=== PATIENT | male | born 1930 | race Caucasian/White ===

== ENCOUNTER 2016-10-03 12:47 | Inpatient (IN) ==
[2016-10-03] MEDS ORDERED: ASPIRIN PO STA (13:09)
[2016-10-03 13:40] LABS: MANUAL DIFF NEEDED? NO
[2016-10-03 13:48] LABS: BASO% 0.2 % (0.0-0.8); EOS% 1.8 % (0.0-10.0); HEMATOCRIT 43.4 % (42.0-52.0); IMM GRAN# 0.03 X1000 (0.0-0.04); IMM GRAN% 0.3 % (0.0-0.5); LYMPH# 1.68 X1000 (1.2-3.4); LYMPH% 15.5 % (20.5-51.1); MCH 31.3 PG (27-31); MCHC 32.3 g/dL (33-37); MCV 96.9 FL (81-99); MONO# 0.85 X1000 (0.11-0.59); MONO% 7.8 % (1.7-9.3); MPV 11.9 FL (7.4-10.4); NEUT% 74.4 % (42.2-75.2); PLT 195 X1000 (130-400); RBC 4.48 XMIL (4.7-6.1)
--- NOTE | 2016-10-03 13:54 | Diag Imaging Result Doc PS360 ---
EXAM: CHEST-PORTABLE HISTORY: sob TECHNIQUE: Erect AP portable at 1350 COMMENT: Compared to the previous study of 12/19/2014 the lungs are clear and better expanded than on the previous study. The heart size and primary vascularity are within normal limits. IMPRESSION: No evidence of acute disease. Electronically signed by Mulugeta Grayson 10/03/2016 1:51 PM
[2016-10-03 13:57] LABS: INR 1.03; PROTIME 10.8 Seconds (9.2-11.7)
[2016-10-03 13:59] LABS: AGAP 10; ALBUMIN 3.7 g/dL (3.5-5.0); ALKALINE PHOSPHATASE 57 U/L (32-122); BUN 29 mg/dL (8-22); CALCIUM 9.5 mg/dL (8.8-10.2); CHLORIDE 102 mmol/L (98-107); CK PROFILE 194 U/L (24-204); COSMO 292; GOT 68 U/L (10-34); GPT 21 U/L (10-44); MAGNESIUM 2.1 mg/dL (1.5-2.7); POTASSIUM 3.9 mmol/L (3.5-5.1); SODIUM 142 mmol/L (136-145); TCO2 30 mmol/L (25-35); TOTAL BILIRUBIN 0.61 mg/dL (0.20-1.00); TOTAL PROTEIN 6.3 g/dL (6.3-8.3)
[2016-10-03] MEDS ORDERED: NITROGLYCERIN SL ONE (14:55)
[2016-10-03] MEDS ORDERED: CARDIZEM IV ONE (15:23)
--- NOTE | 2016-10-03 15:31 | PROVIDER DOCUMENTATION ---
This chart was entered by Steve Hernandez Scribe, acting as scribe for Aubrey Mcclelland MD. HPI-General Adult - General Chief Complaint: Generalized Pain Stated Complaint: general weakness Time Seen by Provider: 10/03/16 12:54 Source: patient Allergies/Adverse Reactions: Patient Allergies Allergy/AdvReac Type Severity Reaction Status Date / Time Sulfa (Sulfonamide Allergy Unknown Unknown Verified 10/03/16 13:06 Antibiotics) amiodarone Allergy Unknown Verified 10/03/16 14:17 Home Medications: Home Medication List Medication Instructions Recorded Confirmed Last Taken Type Amlodipine [Norvasc] 2.5 mg PO DAILY #0 tablet 11/30/14 10/03/16 10/03/16 Rx Carvedilol [Coreg] 3.125 mg PO BID #0 tablet 11/30/14 10/03/16 10/03/16 Rx Docusate Sodium [Colace] 100 mg PO DAILY PRN PRN #0 capsule 11/30/14 10/03/16 1 Day Ago Rx Guar Gum [Benefiber Packet] 1 each PO BID 12/13/14 10/03/16 10/03/16 History Lipase/Protease/Amylase [Creon] 12,000 units PO TID CC #0 capsule 12/20/1410/0310/03/16 Rx Baclofen 10 mg PO 10/03/16 10/03/16 History Donepezil [Aricept] 5 mg PO QHS 10/03/16 10/03/16 1 Day Ago History Hydrocodone Bit/Acetaminophen 1 each PO PRN 10/03/16 1 Day Ago History [Hydrocodon-Acetaminophen 5-325] Insulin Glargine [Lantus] 13 unit SUBQ QHS 10/03/16 10/03/16 10/03/16 History Prednisone 20 mg PO DAILY 10/03/16 10/03/16 10/03/16 History - History of Present Illness -Gen Adult Nature of Presenting Problems: patient is a 86 y/o M that presents with generalized pain and weakness of over 18 months. He reports palpitations for months but worse today. Denies shortness of breath, n/v/d, or fever/chills Location of Pain/Injury: reports: generalized Quality of Pain: reports: aching Severity: reports: moderate Onset/Duration: reports: unsure (almost 18 months) Timing: reports: still present, constant Context/Activities at Onset: reports: none Modifying Factors: improves with: nothing Associated Symptoms: reports: muscle aches, weakness, other (palpitations). denies: chest pain, constipation, fatigue, genitourinary problems, nausea, shortness of breath, vomiting Similar Symptoms Previously?: Yes Recently seen or treated by another doctor?: No Review of Systems - Adult - REVIEW OF SYSTEMS - ADULT Constitutional: reports: fatique. denies: chills, fever Eyes: reports: no symptoms reported Ears, Nose, Mouth & Throat: reports: no symptoms reported Cardiovascular: reports: palpitations. denies: syncope Respiratory: denies: cough, shortness of breath, wheezing Gastrointestinal: denies: abdominal pain, nausea, vomiting Genitourinary: reports: no symptoms reported Musculoskeletal: reports: muscle aches, muscle weakness Integumentary: reports: no symptoms reported Neurological: reports: no symptoms reported Psychiatric: reports: no symptoms reported Endocrine: reports: no symptoms reported Hematologic/Lymphatic: reports: no symptoms reported Allergic/Immunologic: reports: no symptoms reported All Other Systems: Reviewed and Negative Past History - Adult - PAST MEDICAL HISTORY-ADULT Review of Records: reports: Old Records Reviewed, Nursing Assessment Review, Medications Reviewed Cardiovascular: reports: A-Fib, HTN, hyperlipidemia Gastrointestinal: reports: GERD Endocrine/Immune: reports: Diabetes - PRIOR SURGERIES/PROCEDURES Surgical/Procedure History: reports: appendectomy - PRIOR HOSPITALIZATIONS Prior Hospitalizations: reports: none - IMMUNIZATION STATUS Childhood Immunizations: See Nurse Assessment Flu Vaccine: See Nurse Assessment - FAMILY HISTORY Family History: reviewed, not pertinent - SOCIAL HISTORY Smoking: non-smoker Living Situation: family Physical Exam-General - PHYSICAL EXAM-ADULT Initial Vital Signs Reviewed: Yes - CONSTITUTIONAL General Appearance: alert, no apparent distress - EYES Eyes: PERRL/EOMI, pink conjunctivae - HEAD, EARS, NOSE, MOUTH & THROAT HENMT: normocephalic/atraumatic, moist mucous membranes, normal ENT inspection - NECK Neck: full range of motion, normal inspection - RESPIRATORY Respiratory: lungs clear, normal breath sounds, no respiratory distress, no accessory muscle use - CARDIOVASCULAR Cardiovascular: no JVD, irregularly irregular - GASTROINTESTINAL (ABDOMEN) Abdominal Exam: normal bowel sounds, non tender, soft, no organomegaly, no pulsatile mass - MUSCULOSKELETAL Back Exam: no CVA tenderness, no vertebral tenderness Extremity: normal range of motion, normal inspection, no pedal edema - SKIN Integumentary: normal color, warm/dry - NEUROLOGIC 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 tested, no motor/sensory deficits - PSYCHIATRIC Psych/Mental Status: normal mood/affect, normal thought content, normal thought process, oriented x 3 Progress - PLAN OF CARE/RESULTS Progress/Plan/Lab Results: Vital Signs - 8 hr 10/03/16 12:52 Temperature 98.1 F Pulse Rate 148 H Respiratory Rate 15 Blood Pressure 126/97 O2 Sat by Pulse Oximetry 95 Orders Category Date Time Status EKG [EKG] Stat Ther 10/03/16 12:55 Ordered Vital Signs Temp Pulse Resp BP Pulse Ox 10/03/16 14:52 143 H 23 177/139 95 10/03/16 13:37 132 H 20 144/84 98 10/03/16 13:26 131 H 13 144/84 98 10/03/16 12:52 98.1 F 148 H 15 126/97 95 Sulfa (Sulfonamide Antibiotics) Allergy (Unknown, Verified 10/03/16 13:06) Unknown amiodarone Allergy (Verified 10/03/16 14:17) Unknown Amlodipine [Norvasc] 2.5 mg PO DAILY #0 tablet 11/30/14 Carvedilol [Coreg] 3.125 mg PO BID #0 tablet 11/30/14 Docusate Sodium [Colace] 100 mg PO DAILY PRN PRN #0 capsule 11/30/14 Guar Gum [Benefiber Packet] 1 each PO BID 12/13/14 Lipase/Protease/Amylase [Creon] 12,000 units PO TID CC #0 capsule 12/20/14 Baclofen 10 mg PO 10/03/16 Donepezil [Aricept] 5 mg PO QHS 10/03/16 Hydrocodone Bit/Acetaminophen [Hydrocodon-Acetaminophen 5-325] 1 each PO PRN Insulin Glargine [Lantus] 13 unit SUBQ QHS 10/03/16 Prednisone 20 mg PO DAILY 10/03/16 Laboratory 10/03/16 10/03/16 10/03/16 14:25 13:20 13:20 WBC RBC Hgb Hct MCV MCH MCHC RDW Std Deviation Plt Count MPV Immature Gran % (Auto) Neut % (Auto) Lymph % (Auto) [place] % (Auto) Eos % (Auto) Baso % (Auto) Immature Gran # (Auto) Neut # (Auto) Lymph # (Auto) [place] # (Auto) Eos # (Auto) Baso # (Auto) PT 10.8 INR 1.03 PTT (Actin FS) 27.0 Sodium Potassium Chloride Carbon Dioxide Anion Gap BUN Creatinine Estimated GFR/1.73 m2 BUN/Creatinine Ratio Glucose Calculated Osmolality Calcium Magnesium Total Bilirubin AST ALT Alkaline Phosphatase Creatine Kinase Troponin T 0.489 H* 0.514 H* Bco-K-Nwlhyybqvej Pept Total Protein Albumin Globulin Albumin/Globulin Ratio 10/03/16 10/03/16 10/03/16 13:20 13:20 13:20 WBC 10.87 H RBC 4.48 L Hgb 14.0 Hct 43.4 MCV 96.9 MCH 31.3 H MCHC 32.3 L RDW Std Deviation 13.0 Plt Count 195 MPV 11.9 H Immature Gran % (Auto) 0.3 Neut % (Auto) 74.4 Lymph % (Auto) 15.5 L [place] % (Auto) 7.8 Eos % (Auto) 1.8 Baso % (Auto) 0.2 Immature Gran # (Auto) 0.03 Neut # (Auto) 8.09 H Lymph # (Auto) 1.68 [place] # (Auto) 0.85 H Eos # (Auto) 0.20 Baso # (Auto) 0.02 PT INR PTT (Actin FS) Sodium 142 Potassium 3.9 Chloride 102 Carbon Dioxide 30 Anion Gap 10 BUN 29 H Creatinine 1.1 Estimated GFR/1.73 m2 > 60 BUN/Creatinine Ratio 26 Glucose 148 H Calculated Osmolality 292 Calcium 9.5 Magnesium 2.1 Total Bilirubin 0.61 AST 68 H ALT 21 Alkaline Phosphatase 57 Creatine Kinase 194 Troponin T Gmb-[id number]-Tnobdnhhcll Pept 3164 H Total Protein 6.3 Albumin 3.7 Globulin 2.6 Albumin/Globulin Ratio 1.4 Orders Category Date Time Status Cardiac Monitoring DIRECTED Care 10/03/16 13:09 Active Oxygen Therapy- ED Nursing DIRECTED Care 10/03/16 13:09 Active Saline Loc NOW Care 10/03/16 13:09 Active CHEST-PORTABLE [RAD] Stat Exams 10/03/16 13:10 Completed CBC WITH ELECTRONIC DIFF [HEME] Stat Lab 10/03/16 13:20 Completed CK PROFILE [SP CHEM] Stat Lab 10/03/16 13:20 Completed COMPREHENSIVE METABOLIC PANEL [CHEM] Stat Lab 10/03/16 13:20 Completed MAGNESIUM [CHEM] Stat Lab 10/03/16 13:20 Completed PRO B-NATRIURETIC PEPTIDE Stat Lab 10/03/16 13:20 Completed PROTIME WITH INR [COAG] Stat Lab 10/03/16 13:20 Completed PTT [COAG] Stat Lab 10/03/16 13:20 Completed TROPONIN T Stat Lab 10/03/16 13:20 Completed TROPONIN T Stat Lab 10/03/16 14:25 Completed Aspirin Med 10/03/16 13:09 Discontinued 325 mg PO STAT STA Nitroglycerin Sl [Nitroglycerin] Med 10/03/16 14:55 Discontinued 0.4 mg SL NOW ONE EKG [EKG] Stat Ther 10/03/16 12:55 Ordered EKG [EKG] Stat Ther 10/03/16 13:09 Ordered Result Diagrams: 10/03/16 13:20 10/03/16 13:20 - EKG 1 Time of EKG reading by physician:: 13:04 EKG Read and Signed by:: Aubrey Mcclelland EKG Interpretation (*Must complete 3 of following elements*): Abnormal Rate: 136 Rhythm: a-fib with RVR QRS: normal ST Wave: non-specific ST changes - XRAY 1 XRAY Study: Chest Impression: Normal XRAY Interpretation: nad - CONSULTS/PCP/HOSPITALIST Notification #1 *Consult/PCP/Hospitalist*: Time Discussed: 15:22 Reason/Comments: elevated trop, a-fib Consult Disposition: Admit Departure - Departure Date of Disposition Decision: 10/03/16 Time of Disposition Decision: 15:23 DIAGNOSIS: Atrial fibrillation with RVR, Elevated troponin, Generalized weakness Disposition: ADMITTED INPATIENT 09 Certified Medical Emergency: Emergent Condition: Stable Referrals and Follow-Ups: None,PCP [Clinical Support] - - Critical Care Note This patient required my direct & personal management of CC.: Yes Total Time (mins): 50 Critical Care Statement: This patient required my direct personal management to treat or rule out processes, the absence of which, could potentiallly result in sudden, clinically significant life or limb threatening deterioration. Attestation - Physician/ CESAR Attestation The physician spent face to face time with patient:: Yes Advanced Practice Provider documentation review:: Supervising physician onsite and consulted in the evaluation and care of this patient. The physician did have a face to face encounter with the patient. This chart was documented by the indicated scribe, (Steve Hernandez, Leobardo) and accurately reflects the services I performed and decisions made by me, Aubrey Mcclelland MD, as attested by the provider's signature.
[2016-10-03] MEDS ORDERED: NS 500 ML ONE (18:13)
[2016-10-03] MEDS ORDERED: NS 500 ML IV ONE ×2 (18:19→18:59)
[2016-10-03] MEDS ORDERED: LANOXIN IV ONE (18:19)
[2016-10-03] MEDS ORDERED: INSULIN PEN NEEDLES ONE (20:13)
[2016-10-03] MEDS: CREON PO SCH (20:17)
[2016-10-03] MEDS: LANTUS SUBQ SCH (20:19)
[2016-10-03] MEDS: ARICEPT PO SCH (20:19)
[2016-10-03 20:53] LABS: CK INDEX 13.8 (0.0-2.5); CK-MB 29.23 ng/mL (0.0-5.0)
--- NOTE | 2016-10-04 07:40 | EKG Report ---
Test Performed on : 10/03/2016 1:04:26 PM Test Reason : elevated heart rate Blood Pressure : / mmHG Vent. Rate : 136 BPM Atrial Rate : 131 BPM P-R Int : 000 ms QRS Dur : 086 ms QT Int : 320 ms P-R-T Axes : 000 014 155 degrees QTc Int : 481 ms Atrial fibrillation. with rapid ventricular response. ST \T\ T wave abnormality, consider lateral ischemia Abnormal ECG When compared with ECG of 02-DEC-2014 14:58, Atrial fibrillation. has replaced Sinus rhythm. Vent. rate has increased BY 69 BPM T wave inversion now evident in Lateral leads Unconfirmed Result
--- NOTE | 2016-10-04 07:45 | EKG Report ---
Test Performed on : 10/04/2016 06:38:56 AM Test Reason : afib convert Blood Pressure : / mmHG Vent. Rate : 058 BPM Atrial Rate : 058 BPM P-R Int : 178 ms QRS Dur : 090 ms QT Int : 454 ms P-R-T Axes : 058 029 099 degrees QTc Int : 445 ms Sinus bradycardia. Possible Left atrial enlargement Cannot rule out Anterior infarct , age undetermined Abnormal ECG When compared with ECG of 03-OCT-2016 19:55, (Unconfirmed) premature ventricular complexes. are no longer present Non-specific change in ST segment in Inferior leads Nonspecific T wave abnormality no longer evident in Inferior leads T wave inversion now evident in Lateral leads Confirmed by Arcadio Worthington DO ([id number]) on 10/06/2016 3:50:43 PM
--- NOTE | 2016-10-04 07:46 | EKG Report ---
Test Performed on : 10/03/2016 7:55:40 PM Test Reason : rhythm change Blood Pressure : / mmHG Vent. Rate : 055 BPM Atrial Rate : 055 BPM P-R Int : 190 ms QRS Dur : 090 ms QT Int : 434 ms P-R-T Axes : 035 035 090 degrees QTc Int : 415 ms Sinus bradycardia. with occasional premature ventricular complexes. Nonspecific T wave abnormality Abnormal ECG When compared with ECG of 03-OCT-2016 13:04, (Unconfirmed) Sinus rhythm. has replaced Atrial fibrillation. Vent. rate has decreased BY 81 BPM Confirmed by Arcadio Worthington DO ([id number]) on 10/06/2016 3:42:17 PM
[2016-10-04] MEDS: CREON PO SCH ×3 (08:08→17:42)
[2016-10-04] MEDS: PREDNISONE PO SCH (08:08)
[2016-10-04] MEDS ORDERED: SOLU-MEDROL IV ONE (08:38)
--- NOTE | 2016-10-04 09:15 | PROGRESS NOTE ---
DATE: 10/04/2016 SUBJECTIVE: The patient states that he hurts all over. This has been one of his ongoing complaints the last few months. We have thought that this is related to the polymyalgia rheumatica in the past. He denies any lily chest pain. Last night he converted to sinus rhythm after some digoxin and fluids. We discussed his lab results. OBJECTIVE: Vital Signs: Temperature 97.7, pulse 55, respirations 18, blood pressure 125/63, 98% saturated on room air. Lungs: Clear. Cardiovascular: Regular. Bradycardia (this is his baseline). Extremities: No peripheral edema. Neuropsychiatric: Patient's dementia appears to be sent objectively worse to me. He is unable to answer simple questions without extensive thought or redirection. LABORATORY: Cardiac enzymes this morning showed an elevation of creatine kinase to 212, with a positive CK-MB fraction and troponin elevated to 0.874. ASSESSMENT AND PLAN: My suspicion is that the patient just does not tolerate his rapid rate atrial fibrillation when he flips into that rhythm. Yesterday, he was in atrial fibrillation at 130 or more for an unknown period of time. I suspect that this is the culprit which caused him to spill over cardiac enzymes. I do not see any gross acute changes on his EKG, particularly once he is flipped into sinus rhythm. I really do not know of any other intervention we can undertake with him. I think his history of intracranial hemorrhage precludes any usage of anticoagulant therapy. His blood pressure is relatively low and he may not tolerate any other medications which would deliver myocardial oxygen demand either. There is no need for any rate control agent as his baseline is sinus bradycardia. One might entertain thoughts of treating for a sick sinus syndrome, but I am not sure that is an emergent thing. The patient's dementia is subjectively worse compared to the last time I spoke with him in the office. This may be related to the inclusion of some relatively low-dose narcotics and to his regimen. Both he and his family nearly insisted on their inclusion at the last office visit, as a result of his ongoing chronic diffuse pain. During this hospitalization I plan to give him a high dose of Solu-Medrol to see if it alleviates any of his pain. Cardiology consult is pending. Any further testing will be deferred to the judgment of the strategic consultant. cc: Juan Meade MD
[2016-10-04] MEDS: COREG PO SCH ×2 (11:42→21:31)
[2016-10-04] MEDS: NORVASC PO SCH (11:42)
[2016-10-04] MEDS: NORCO-5 PO PRN (11:42)
[2016-10-04 12:36] LABS: CK INDEX 10.1 (0.0-2.5); CK-MB 22.3 ng/mL (0.0-5.0)
--- NOTE | 2016-10-04 12:46 | CONSULTATION ---
DATE OF CONSULTATION: 10/04/2016 REQUESTING PHYSICIAN: Juan Meade MD. REASON FOR CONSULTATION: Abnormal cardiac enzymes, atrial fibrillation. HISTORY: Mr. Freedman presented to the hospital yesterday, 10/03/2016, complaining of palpitations and feeling diffuse somatic pain. He says that this is typically triggered by changes in the weather. When it is going to rain, he hurts everywhere. At any rate, at the time of presentation, which was somewhere around 1 o'clock in the afternoon, we did an EKG that showed atrial fibrillation with rapid response, no ischemic changes. Subsequently, he converted to sinus rhythm and on an EKG done at 7:55 p.m. he was back in sinus with PVCs. ST segments did not appear to be significantly abnormal. Then, a final EKG done this morning at 6:38 showed sinus rhythm with nonspecific ST in leads I and aVL. The patient says that he is not having any pain in the chest; however, his pain is diffuse, somatic, basically "every bone hurts." Apparently, he has a history of polymyalgia rheumatica. He is not in any distress at this time. PAST MEDICAL HISTORY: Positive for paroxysmal atrial fibrillation. He has been treated previously with warfarin and amiodarone. He suffered a hemorrhagic stroke and they had to discontinue all anticoagulants. He has hyperlipidemia, type 2 diabetes mellitus, gastric reflux, hypertension, and he has some degree of dementia. PAST SURGICAL HISTORY: He had a popliteal cyst removed. He has had rectal surgery and appendectomy. SOCIAL HISTORY: He is and lives by himself. He has 3 children who take turns to see him at least once a week. He is not a smoker or a drinker. He is retired from [employer]. 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 FAMILY HISTORY: Both parents in the past, father from congestive failure and mother had a stroke. ALLERGIES: He is allergic to sulfa drugs and he could not tolerate amiodarone. HOME MEDICATIONS: At this time include prednisone 20 mg daily, Aricept 10 mg at bedtime, amlodipine 2.5 daily, docusate 100 daily, carvedilol 3.125 twice a day, insulin Lantus 30 units at bedtime, hydrocodone twice a day, Baclofen 10 mg daily. REVIEW OF SYSTEMS: He has difficulty getting around. He has to walk with a cane. No chest pains typically. No significant dyspnea. No swelling of the legs. He does have a lot of indigestion. He has no other major positives in the multiple systems checked. PHYSICAL EXAMINATION: VITAL SIGNS: Blood pressure 125/63, pulse 65, temperature 97.7 degrees, and respirations 18. GENERAL: He is awake, alert, oriented, in no distress. HEENT: Unremarkable. CHEST: Clear to auscultation and percussion. HEART: Sounds regular and rhythmic. I do not hear a gallop or murmur. ABDOMEN: Nontender. Soft. No masses. No hepatomegaly. EXTREMITIES: Good pulses. No peripheral edema. NEUROLOGICAL: Follows commands. Moves all 4 extremities. LABORATORY: Sodium 142, potassium 3.9, BUN 29, creatinine 1.1, chloride 102, carbon dioxide 30. CK MB 194 and 212. CK MB fraction 29.23. CK index 13.8, which is positive. Troponin levels have been checked several times and they are 0.514, 0.489, and 0.874. This is positive, raising concern for a [id number] myocardial infarction . IMAGING: His chest x-ray showed no acute disease. IMPRESSIONS: 1. Patient presenting with what appears to be a [id number]-LE-ikjvtkqhi myocardial infarction . 2. Atrial fibrillation with rapid response, paroxysmal. Has converted to sinus rhythm. Previous intolerance to amiodarone, complicated with intracranial hemorrhage. Cannot take warfarin long- term. 3. Generalized weakness, fatigue, and somatic pains. History of polymyalgia rheumatica. 4. Hypertension, which is well controlled. RECOMMENDATIONS: At this point in time, we will obtain echocardiogram. We will do a myocardial perfusion stress test. We will trend his cardiac enzymes. We will put him on Lovenox. The patient is at risk of further cardiac events. We will discuss with Dr. Meade about proceeding with heart catheterization on him to define his coronary anatomy. Further advice will be forthcoming. cc: MD Juan Schwab MD
[2016-10-04] MEDS: HUMALOG SUBQ SCH ×2 (18:21→21:46)
[2016-10-04] MEDS: ARICEPT PO SCH (21:32)
[2016-10-04] MEDS: LANTUS SUBQ SCH (21:33)
--- NOTE | 2016-10-04 22:38 | ECHO REPORT ---
ORDER DATE: 10/04/2016 STUDY: Echocardiogram. MEASUREMENTS: Left ventricular end-diastolic diameter 4.1, systolic diameter 2.6, posterior wall thickness 0.9, septal thickness 1.6, left atrium 3.6, aortic root 3.5. SUMMARY: 1. Fair quality study. 2. Moderate sclerosis of noncoronary cusp of trileaflet aortic valve demonstrated. Aortic valve opening appears adequate. Peak gradient across the aortic valve is 18 mmHg with a mean gradient of 10 mmHg. Calculated aortic valve area using continuity equation is 2 cm2. Aortic valve area with planimetry is 1.9 cm2. Mild mitral annular calcification is demonstrated. There is very mild mitral regurgitation. Tricuspid and pulmonic valves are without structural abnormality with trace tricuspid regurgitation and mild pulmonic insufficiency. The aortic root is normal in size. 3. Normal left ventricular dimension suggested on 2-dimensional images. Estimated left ventricular ejection fraction appears to be at least 70%. No regional wall motion abnormalities are evident. Intravenous echo contrast agent Definity was utilized to enhance endocardial definition for wall motion analysis. No regional wall motion abnormalities are evident. Doppler suggests left atrium, right atrium and right ventricle are normal in size with normal right ventricular systolic function. 4. No pericardial effusion. 5. Inferior vena cava not well demonstrated. 6. Sinus rhythm during study. CONCLUSIONS: 1. Aortic valve sclerosis without significant stenosis. 2. Very mild mitral annular calcification with very mild mitral regurgitation. 3. Estimated left ventricular ejection fraction greater than 70% without wall motion abnormality evident. cc: MD Nicole Lund PA Timothy P. Weirich, MD
[2016-10-05] MEDS: NORCO-5 PO PRN (01:36)
[2016-10-05] MEDS: HUMALOG SUBQ SCH ×4 (06:31→20:42)
--- NOTE | 2016-10-05 08:28 | PROGRESS NOTE ---
DATE: 10/05/2016 SUBJECTIVE: The patient has no complaints. He stated that he felt better yesterday after receiving a high dose of steroids and did not have as much pain in his joints and muscles. We discussed the findings of his myocardial perfusion scan with the scar on the bottom of his heart and retained ejection fraction. He wants to get up and try walking around some. I told him that we would transfer him to the floor today. OBJECTIVE: Vital Signs: Temperature 97.9, pulse 57, respirations 18, BP 162/85, 98% saturated on room air.General: Patient's lungs are clear. Cardiovascular: Regular bradycardia at approximately 56 beats per minute. Abdomen: Benign. Extremities: Show no peripheral edema. ASSESSMENT AND PLAN: 1. The patient continues to spill cardiac enzymes in the form of elevated troponin. CK has been relatively stable although slightly above normal. He has converted from atrial fibrillation into a normal sinus bradycardia and a myocardial perfusion scan showed inferior basilar scar with wall motion abnormality but retained ejection fraction of 70%. At the present time, I do not feel that wholesale changes in his medication regimen are in order, although the addition of a coronary vasodilator may be in order. If cardiology feels that it is appropriate, we can proceed with heart catheterization, but I will leave that decision making process up to them. 2. The patient's previously diagnosed polymyalgia rheumatica seems to respond to a higher dose of steroids. I plan to kick up his prednisone dose to 40 mg to see if he tolerates the pain better. We are still using a little bit of pain medication to alleviate that. I have not checked a sedimentation rate during this hospitalization but will do so on an outpatient basis. 3. The patient's diabetes ratcheted itself up and out of control yesterday after the high dose of steroids. We started sliding scale Humalog yesterday and it seems to be coming under better control. We will continue to monitor this. PLAN: Plan is to transfer him to the floor. Any other recommendations by cardiology are welcomed. We will try and get the patient's activity level up and possibly get him home this weekend if no other studies are planned. cc: Juan Meade MD
[2016-10-05] MEDS: PREDNISONE PO SCH (09:13)
[2016-10-05] MEDS ORDERED: LEXISCAN ONE (10:09)
--- NOTE | 2016-10-05 10:25 | Diag Imaging Result Document ---
PROCEDURE NAME: MYOCARDIAL PERFU SCAN, REST - 10/04/2016 STUDY: Resting sestamibi. SUMMARY: The patient was administered 27.5 millicuries of technetium-99m sestamibi, after which resting cardiac images were obtained. Review of these images demonstrated a severe defect in uptake in the basal to mid inferior wall on stress images. Demonstrated a severe defect in uptake in the basal to mid inferior wall. Gated images demonstrate severe hypokinesis of the basal inferior wall with calculated left ventricular ejection fraction of 70%. CONCLUSIONS: Abnormal resting sestamibi images demonstrating severe defect in uptake in the basal to mid inferior wall with corresponding severe hypokinesis. Prior inferior infarction is suggested. Calculated left ventricular ejection fraction 70%. cc: MD Nicole Lund PA
[2016-10-05] MEDS: CREON PO SCH ×3 (12:20→16:46)
[2016-10-05] MEDS: NORVASC PO SCH (12:35)
[2016-10-05] MEDS: COREG PO SCH ×2 (12:36→20:05)
[2016-10-05] MEDS: ARICEPT PO SCH (20:05)
[2016-10-05] MEDS: LANTUS SUBQ SCH (20:42)
[2016-10-06] MEDS: HUMALOG SUBQ SCH ×4 (06:17→23:27)
[2016-10-06] MEDS: CREON PO SCH ×3 (09:07→16:43)
[2016-10-06] MEDS: COREG PO SCH ×2 (09:07→22:07)
[2016-10-06] MEDS: NORVASC PO SCH (09:07)
[2016-10-06] MEDS: PREDNISONE PO SCH (09:35)
[2016-10-06] MEDS ORDERED: LANTUS SUBQ SCH (11:17)
--- NOTE | 2016-10-06 12:08 | PROGRESS NOTE ---
DATE: 10/06/2016 SUBJECTIVE: The patient states that he was able to walk around, but needed things to steady himself. He has had no shortness of breath or chest pain. He states that his overall bodily/musculoskeletal pain is improved. His blood sugar levels are running up slightly. OBJECTIVE: Vital Signs: 98.9, 57, 17, 166/63. He is 100% saturated on room air. General: The patient is in a regular bradycardia. Lungs: Clear. Extremities: Show no peripheral edema. LABORATORY: Troponin has gone down to 0.838 this morning. ASSESSMENT AND PLAN: 1. Dr. 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 We discussed him as a candidate for possible ablation and/or pacemaker placement. We felt that we could achieve this on an outpatient basis and in consult with his regular plan rep, Dr. Dominguez in [place]. I will leave any other medication adjustments to the cardiology team, but he is back on his home regimen with reasonable results, and I think we will leave him well enough alone, but it would likely be adequate as well. 2. The patient's blood sugar is up slightly. I have increased his insulin dose to 16 units at bedtime. This is likely due to increasing the prednisone. 3. The patient's PMR/polymyalgia has improved with increased dose of prednisone, and I think we will keep him on 40 for awhile and monitor his progress in the office with repeat sedimentation rate, and then try and keep him as comfortable as possible. I would like to see the patient up and more ambulatory before we decide to discharge him home and have outpatient follow up. I will plan to keep him an additional day to monitor blood pressure and have his activity level increased. If all goes well, he will be discharged tomorrow. cc: Juan Meade MD
--- NOTE | 2016-10-06 12:10 | PROGRESS NOTE ---
DATE: 10/06/2016 SUBJECTIVE: Mr. Freedman reports he has done well overnight. He has no complaints of any chest pain. No heart racing. OBJECTIVE: Vital Signs: On physical examination, the patient has been afebrile. His heart rates are in the 50s, blood pressure 166/63. General: Generally no acute distress. Cardiovascular: He sounds to be in a regular rate and rhythm. Telemetry currently shows sinus. He has no lower extremity edema. Chest: Exam is clear bilaterally. No increased work of breathing. Abdomen: Soft, nontender. PERTINENT DATA: His cardiac enzymes last checked yesterday evening at 6 p.m. were 0.838, which is down from a peak of 1.3. He has no other chemistry or CBC data today. ASSESSMENT: 1. Atrial fibrillation. 2. Baseline relative bradycardia. 3. Coronary artery disease. PLAN: Patient seems to have had a rate-related ischemic event. He has some difficulty treating his rapid ventricular response secondary to baseline sinus bradycardia. He seems like an appropriate candidate for a pacemaker with or without AV node ablation. He apparently has had some intolerance to amiodarone before. I am unclear exactly what that intolerance is, and it may just have been due to bradycardia. Could consider an EP referral as an outpatient with pacemaker implantation and subsequent beta- blockade and potentially amiodarone versus an AV node ablation with pacemaker implantation and subsequent usage of a beta-ricky. The patient seems amenable to this option. He is not an anticoagulation candidate secondary to previous intracranial bleeding. cc: MD Juan Ly MD
[2016-10-06] MEDS ORDERED: INSULIN PEN NEEDLES ONE (22:03)
[2016-10-06] MEDS: ARICEPT PO SCH (22:07)
[2016-10-07] MEDS: HUMALOG SUBQ SCH ×4 (06:15→20:40)
[2016-10-07 06:25] LABS: MANUAL DIFF NEEDED? NO
[2016-10-07 06:27] LABS: HEMOGLOBIN 11.5 g/dL (14.0-18.0); LYMPH# 1.27 X1000 (1.2-3.4); MCH 31.3 PG (27-31); MCHC 31.9 g/dL (33-37); MCV 98.1 FL (81-99); MONO# 0.96 X1000 (0.11-0.59); MONO% 9.8 % (1.7-9.3); MPV 12.3 FL (7.4-10.4); NEUT% 77.2 % (42.2-75.2); PLT 154 X1000 (130-400); RBC 3.67 XMIL (4.7-6.1)
[2016-10-07 07:03] LABS: AGAP 9; BUN 26 mg/dL (8-22); CALCIUM 9.2 mg/dL (8.8-10.2); CHLORIDE 107 mmol/L (98-107); COSMO 299; POTASSIUM 4.7 mmol/L (3.5-5.1); SODIUM 145 mmol/L (136-145); TCO2 29 mmol/L (25-35)
[2016-10-07] MEDS: NORVASC PO SCH (08:48)
[2016-10-07] MEDS: CREON PO SCH ×3 (08:49→17:03)
[2016-10-07] MEDS: COREG PO SCH ×2 (08:50→20:27)
[2016-10-07] MEDS: PREDNISONE PO SCH (08:54)
--- NOTE | 2016-10-07 14:12 | PROGRESS NOTE ---
DATE: 10/07/2016 SUBJECTIVE: The patient reports he is feeling fine today. He has no complaints of any chest pain. PHYSICAL EXAMINATION: Vital signs: He is afebrile. Heart rate in the 50s to 60s. His blood pressure is 173/65. He has been markedly hypertensive over the course of the hospitalization. General: He is in no acute distress. Cardiovascular: He is in a regular rate and rhythm. He has no murmurs. He has no S3. He has no lower extremity edema. Chest: Clear bilaterally. No increased work of breathing. Abdomen: Soft, nontender, nondistended. No obvious organomegaly. PERTINENT DATA: His lab data shows a white count of 9.7, hematocrit 36, platelet count is 154,000. Sodium 145, potassium 4.7. His cardiac enzymes are trending down. His most recent was 0.841 which is flat from the 18th. He is not having any chest pain. ASSESSMENT: 1. Atrial fibrillation. 2. Non ST-elevation myocardial infarction. I will review the patient's stress test. We need to consider possibility of cardiac catheterization given his elevated enzymes. I have made a referral over to Dr. Dominguez again as they had previous discussions regarding potential AV node ablation with permanent pacemaker implantation. cc: MD Juan Ly MD
[2016-10-07] MEDS ORDERED: IMDUR PO ONE (15:33)
[2016-10-07 19:29] VITALS: BP 149/77
[2016-10-07] MEDS ORDERED: PREDNISONE PO ONE (20:13)
[2016-10-07] MEDS: ARICEPT PO SCH (20:42)
[2016-10-07] MEDS ORDERED: LANTUS SUBQ SCH (21:00)
[2016-10-07] MEDS ORDERED: NORVASC PO SCH (21:00)
--- NOTE | 2016-10-07 22:07 | DISCHARGE SUMMARY ---
ADMISSION DATE: 10/03/2016 DISCHARGE DATE: 10/07/2016 DISCHARGE DIAGNOSES: 1. Paroxysmal atrial fibrillation. 2. Non-Q-wave myocardial infarction. 3. Segmental wall motion abnormality in the inferior basilar segment of the heart. 4. Hypertension. 5. Dementia. 6. Polymyalgia. HOSPITAL COURSE: An 86-year-old white male who presented to the hospital with pain all over and atrial fibrillation with profound weakness. Over the course of the next 24 hours, he converted with medication back to his normal sinus rhythm. Upon initial evaluation, the patient had an elevated troponin that peaked at a level of 1.3, but had trended back down at the time of discharge. At no time during the patient's hospitalization did he have lily chest pain. He did have some mild dyspnea when his heart was in atrial fibrillation, and he was running about 140 beats per minute. During the hospitalization, the patient complained of diffuse body aches and pains. He had been on 20 mg of prednisone for PMR in the past. We were unclear whether this also represented polymyositis. I gave him a large dose of steroids, and then increased his prednisone. He seemed to get some reasonable pain relief from this, and we decided to continue him at 40 mg of prednisone daily. As a result of his elevation in the steroid dose, blood sugar also blossomed out quite vigorously. We had to increase his usual Lantus dose from 13 units to 20 units at bedtime. At the time of discharge, Dr. Worthington had added amlodipine 5 mg twice daily as an antianginal and blood pressure lowering agent. Unfortunately, in the past, this patient has also suffered from edema as a result of higher doses of amlodipine. I have discontinued Dr. Worthington's recommendation, and started some Imdur [address] Worthington and I discussed followup with Dr. Dominguez for potential ablation and/or pacemaker placement. At the time of discharge, the patient had reached maximum hospital benefit and was very eager to go home. I discussed this with him and with his daughter, and they were in agreement to proceed. We will have outpatient followup arranged with Dr. Dominguez as quickly as is practicable. Dr. Worthington had indicated that he will take care of that through his office. cc: Juan Meade MD
[2016-10-08] MEDS ORDERED: IMDUR PO SCH (09:00)
== END 2016-10-07 21:27 | disposition home or self-care (01) ==
LOC: SUPCPDRO → ED 12:47 → 3N 15:43 → 3S 17:45 → 4N 10-06 06:58
PROVIDERS: ADMIT Internal Medicine; ATTEND Internal Medicine